=== PATIENT | male | born 1945 | race Caucasian/White ===

== ENCOUNTER 2016-03-10 07:14 | Inpatient (IN) | payer MEDICARE ==
[2016-01-29 02:15] VITALS: BMI 37.3
[2016-03-10] MEDS ORDERED: Levofloxacin 500 mg/100 ml D5W 500 MG/100 ML RTU IV ONE (07:34)
[2016-03-10] MEDS ORDERED: HEPARIN 5000 UNITS/ML VIAL ONE (07:53)
--- NOTE | 2016-03-10 08:54 | HIM.ANES ---
Anesthesia Evaluation & Plan Diagnoses: BENIGN PROSTATIC HYPERPLASIA WITH LOWER URINARY TRACT SYMP (03/10/16) OTHER RETENTION OF URINE (03/10/16) Consented Procedure: Simple Retropubic Prostatectomy - Focused Review of Systems Cardiac History: Yes: Hx Hypertension, Hx Angina, Hx Heart Attack (May 2013), Hx Cardiac Catheterization (May 2012), Hx Coronary Stent ( --05/2013), Hx Cardiac Disorders, Hx Abnormal Cholesterol/Hyperlipidemia EKG Rhythm: old ant [place] HEENT: Yes: Hx Vision Problem (Reading glasses), Other HEENT Problems No: Loose/Decaying Teeth, Removable Dental Work, Temporomandibular Joint Disease (TMJ) Respiratory: Yes: Hx Snoring Gastrointestinal: Yes: Hx Gastrointestinal Disorders No: Hx Gastroesophageal Reflux Disease, Hx Colonoscopy Neurological/Musculoskeletal: Yes: Hx Back Pain No: HX Cerebrovascular Accident, Hx Neurological Disorders Psychological: No Hx Depression, No Hx Mental/Emotional Disorders Blood/Autoimmune: No: Hx AIDS, Hx Hepatitis (type), Hx Clotting Problems Smoking Status: Current some day smoker (cigars) Hx Stress Test (date): Yes (12/25/2014 ef 65%) Hx Echocardiogram (date): Yes (08/14/13 ef 65%) - Focused Physical Exam NPO since: 1800 Mallampati: Class II Thyromental Distance: Greater than 3 Neck: Full Range of Motion Dental: Normal - no significant findings Cardiovascular/Chest: Normal Respiratory: Lungs clear Any problems with anesthesia, including nausea and vomiting?: No Any relatives with a history of Malignant Hyperthermia?: No Does patient have a history of Malignant Hyperthermia?: No Beta Sil given (if appropriate): No Does the patient have a history of Motion Sickness-: No Other: Problem List Problem Status Onset AV block, Mobitz 1 Acute Acute coronary syndrome Acute Acute non-ST segment elevation myocardial infarction Acute Chest pain Acute Coronary artery disease Acute Hypertensive emergency Acute Non-STEMI (non-ST elevated myocardial infarction) Acute Postop check Acute Allergies Allergy/AdvReac Type Severity Reaction Status Date / Time No Known Allergies Allergy Verified 03/10/16 07:47 Home Medications Medication Instructions Recorded Last Taken Type Carvedilol [Coreg] 12.5 mg PO BID 08/12/13 03/09/16 08:00 History Clopidogrel Bisulfate [Plavix] 75 mg PO DAILY 08/12/13 03/05/16 08:00 History Nitroglycerin [Nitrostat] 0.4 mg SL [id number] PRN 08/12/13 Unknown History Aspirin [Aspirin EC] 81 mg PO DAILY 12/16/14 03/05/16 08:00 History Atorvastatin Calcium 80 mg PO DAILY 12/16/14 03/09/16 08:00 History Ezetimibe [Zetia] 10 mg PO DAILY 12/16/14 03/09/16 08:00 History Fenofibrate [Lipofen] 150 mg PO DAILY 12/16/14 03/09/16 08:00 History Olmesartan [Benicar] 20 mg PO DAILY 12/16/14 03/09/16 08:00 History [place]-3S/Dha/Epa/Fish Oil [[place]-3 1 each PO DAILY 12/16/14 03/09/16 08:00 History Fish Oil 1,200 mg Sfgl] Tamsulosin HCl [Flomax] 0.4 mg PO DAILY #20 cap 01/29/16 03/09/16 08:00 Rx Height and Weight Patient's height 6 ft Patient's weight 122.47 kg BMI 37.3 Vital Signs Temperature 97.2 F L 03/10/16 07:41 Pulse Rate 75 03/10/16 07:41 Respiratory Rate 18 03/10/16 07:41 Blood Pressure 149/90 03/10/16 07:41 Pulse Oxygen Saturation 94 03/10/16 07:41 METS - Level of Activity: Climbing stairs(1 flight),walking level ground, running short distance - Anesthetic Plan Anesthesia Type: General ASA Class: 3 -: I have examined this patient and reviewed the medical record. The patient has been assessed prior to anesthesia. Risks and benefits of anesthesia and anesthetic technique options have been discussed and all questions answered. The patient accepts the risk and desires me to proceed with the planned anesthetic.
[2016-03-10] MEDS ORDERED: FENTANYL 100 MCG/2 ML VIAL IV PRN ×2 (08:55)
[2016-03-10] MEDS ORDERED: MEPERIDINE 25 MG/ML TUBEX IV PRN (08:55)
[2016-03-10] MEDS ORDERED: hydrALAZINE 20 MG/ML VIAL IV PRN (08:55)
[2016-03-10] MEDS ORDERED: ONDANSETRON HCL 4 MG/2 ML VIAL IV PRN ×2 (08:55→11:03)
[2016-03-10] MEDS ORDERED: LABETALOL 20 MG/4 ML SYRINGE IV PRN (08:55)
[2016-03-10] MEDS ORDERED: HYDROmorphone 1 MG INJECTION IV PRN ×2 (08:55)
[2016-03-10] MEDS ORDERED: ONDANSETRON HCL 4 MG ODT TAB PO PRN (08:55)
[2016-03-10] MEDS ORDERED: GLYCOPYRROLATE 1 MG VIAL IM ONE (10:00)
[2016-03-10] MEDS ORDERED: MIDAZOLAM 2 MG/2 ML VIAL IV ONE (10:00)
[2016-03-10] MEDS ORDERED: DEXAMETHASONE 4 MG/ML VIAL IV ONE (10:00)
[2016-03-10] MEDS ORDERED: EPHEDrine 50 MG/ML VIAL IM ONE (10:00)
[2016-03-10] MEDS ORDERED: ONDANSETRON HCL 4 MG/2 ML VIAL IV ONE (10:00)
[2016-03-10] MEDS ORDERED: PROPOFOL 200 MG/20 ML VIAL IV ONE (10:00)
[2016-03-10] MEDS ORDERED: VECURONIUM 10 MG VIAL IV ONE (10:00)
[2016-03-10] MEDS ORDERED: HYDROmorphone 2 MG/ML VIAL IM ONE (10:00)
[2016-03-10] MEDS ORDERED: NEOSTIGMINE 1 MG/1 ML (1:1000) INJ 10 ML MDV IM ONE (10:00)
[2016-03-10] MEDS ORDERED: ROCURONIUM 50 MG/5 ML VIAL IV ONE (10:00)
--- NOTE | 2016-03-10 10:58 | HIMOPRPT ---
SPECIMENS: DATE OF PROCEDURE: 03/10/16 PREOPERATIVE DIAGNOSIS: [BPH with urinary retention ]. POSTOPERATIVE DIAGNOSIS: BPH with urinary retention [ ]. PROCEDURE PERFORMED: Simple retropubic prostatectomy [ ]. ANESTHESIA: [general ]. SURGEON: Thomas Wang MD PROCEDURE IN DETAIL: [ ] this patient was taken to the operating room was given general anesthesia- he was placed in supine position this slightly raised pubic bone by flexing his position--his Hawk catheter was removed and then he was prepped---and draped in usual sterile fashion a transverse incision was made for about 5 inches of finger breaths above the symphysis pubis--- this is a was carried to subcutaneous tissues and the rectus sheath -------a separately retractor was placed in between the 2 recti muscles to expose the retropubic space-- upper and lower leaves of the rectus sheath were dissected off with the help of cautery to free them from underlying muscle. A self retraining retractor was placed in between the 2 recti muscles to expose the retropubic space---2 stay sutures were placed in the midline 1 at the bladder neck and one 2 cm below that using 0 chromic catgut sutures--- with the help of cautery a transverse incision was made across the anterior prostate capsule and using a Metzenbaum scissors dissection was carried out between the adenoma and the capsule and eventually with the help of finger enucleation of the prostatic adenoma was completely done---any bleeders were controlled with cautery-- then a 223 of Hawk catheter was passed through the meatus and then through the prostatic fossa into the bladder and balloon instilled with 15 cc of water--- the anterior prostatic capsule was closed by 0 chromic continuous interlocking suture from each angle and coming and tying them both in the--- midline bladder irrigation was carried out and it appeared there was complete watertight closure a flat ANDREA drain was placed in the prevesical space and brought out through a stab wound below the incision and anchored to the skin with the upper curl was silk suture and connected to mild traction---- to recti muscles were approximated together with the help of 0 chromic interrupted sutures and the fascia was closed the help 030 Ethibond sutures using interrupted sutures-- subcutaneous layer was closed the help of3 0 Vicryl sutures and skin was closed elbow mohamud--- structures was applied over the main operative site patient lost about 220 cc of blood of which 120 cc was replaced patient tolerated procedure well and was returned to the recovery room area in satisfactory condition thank you
[2016-03-10] MEDS ORDERED: NITROGLYCERINE 0.4 MG TAB SL PRN (11:01)
[2016-03-10] MEDS ORDERED: HYDROCODONE 5 MG/ACETAMIN 325 MG TAB PO PRN (11:03)
[2016-03-10] MEDS ORDERED: HYDROmorphone 50 ML IV PRN (11:03)
[2016-03-10] MEDS ORDERED: FENTANYL 100 MCG/2 ML VIAL ONE (11:33)
[2016-03-10] MEDS ORDERED: HYDROmorphone 50 ML IV ONE (11:42)
[2016-03-10] MEDS ORDERED: LR 1,000 ML IV SCH (12:00)
[2016-03-10] MEDS ORDERED: Vaccine Screening Complete SCH (14:00)
--- NOTE | 2016-03-10 15:37 | CAPUEKG ---
[place], [place] Test Date: 2016-03-10 Pat Name: JENNIFER CERNA Department: Room: Gender: Male Procurement Agent: : Requested By: Order Number: Reading MD: Surya Watkins Measurements Intervals [place] Rate: 66 P: 23 CT: 232 QRS: -40 QRSD: 188 T: -18 QT: 470 QTc: 492 Interpretive Statements Sinus rhythm with 1st degree AV block Left axis deviation Right bundle branch block Inferior infarct, age undetermined No change from prior tracing. of Abnormal ECG Electronically Signed On 03-10-16 15:37:05 EST by Surya Watkins <[email or web address]> [id number]
[2016-03-10] MEDS: LR 1,000 ML IV SCH (17:15)
[2016-03-10] MEDS: D5W/LR 1,000 ML IV SCH (20:04)
[2016-03-10] MEDS: CARVEDILOL 12.5 MG TAB PO SCH (20:04)
[2016-03-11] MEDS: LR 1,000 ML IV SCH ×3 (04:42→23:38)
[2016-03-11 07:18] LABS: AUTOMATED BASOPHIL 0.2 % (0-2); AUTOMATED EOSINOPHIL 0.3 % (0-5); AUTOMATED LYMPH 12.6 % (17-44); AUTOMATED NEUTROPHIL 70.9 % (45-76); MPV 9.1 fL (7.4-10.4)
[2016-03-11 07:45] LABS: BLOOD UREA NITROGEN 21 MG/DL (9-20); CALCIUM 8.6 MG/DL (8.4-10.2); CALCULATED OSMOLALITY 274 MOs/Kg (270-290); CHLORIDE 108 mEq/L (98-107); GLUCOSE 106 mg/dL (70-99); SODIUM LEVEL 141 mEq/L (137-146)
[2016-03-11] MEDS: Levofloxacin 500 mg/100 ml D5W 500 MG/100 ML RTU IV SCH (08:07)
[2016-03-11] MEDS: OMEGA-3-ACID ETHYL ESTERS 1000 MG CAP PO SCH (08:07)
[2016-03-11] MEDS: ATORVASTATIN 80 MG TAB PO SCH (08:07)
[2016-03-11] MEDS: EZETIMIBE 10 MG TAB PO SCH (08:07)
[2016-03-11] MEDS: OLMESARTAN 20 MG TAB PO SCH (08:07)
[2016-03-11] MEDS: FENOFIBRATE 145 MG TAB PO SCH (08:07)
[2016-03-11] MEDS: CARVEDILOL 12.5 MG TAB PO SCH ×2 (08:08→21:27)
[2016-03-11] MEDS ORDERED: FENOFIBRATE 150 MG PO SCH (09:00)
[2016-03-11] MEDS ORDERED: OMEGA PO SCH (09:00)
[2016-03-11] MEDS ORDERED: FISH OIL PO SCH (09:00)
[2016-03-11] MEDS ORDERED: EPA PO SCH (09:00)
[2016-03-11] MEDS ORDERED: DHA PO SCH (09:00)
[2016-03-11] MEDS ORDERED: [UNRECOGNIZED DRUG - OTHER] PO SCH (09:00)
[2016-03-11] MEDS: D5W/LR 1,000 ML IV SCH ×2 (15:14→15:18)
--- NOTE | 2016-03-11 15:39 | SC.ANESPOS ---
Post-Anesthesia Note LOC: Fully Awake Post-Anesthesia Assessment: Awake, Returned to Baseline, Hemodynamically Stable , Pain Control Adequate Phase I & II Recovery Complete: Yes Apparent Anesthesia Complication: No : N PACU Discharge Time: 12:45 - Vital Signs Blood Pressure: 123/64 Pulse: 61 Resp Rate: 18 O2 Sat: 92 Temp: 98.3 F - Comments Anesthesia Discharge Time Report Time 12:45
[2016-03-11] MEDS: OXYBUTYNIN 5 MG TAB PO PRN ×2 (16:29→21:27)
--- NOTE | 2016-03-11 17:21 | PCM.UROPRO ---
Chief Complaint: FEELING BETTER---HAS HAD BLADDER SPASMS---BLADDER IRRIGATED---CBI STOPPED THIS AM--ON LIQUID DIET Post Op Day #: 1 Post-op Assessment: Reports: No new complaints, Feels better, Pain is less, Tolerating liquids well Patient care reviewed: Yes Patient care reviewed and discussed with Nursing - Physical Exam Vital Signs: Temperature: 98.3 F (03/11/16 15:39) HR: 61 (03/11/16 15:39) RR: 18 (03/11/16 15:39) BP: 123/64 (03/11/16 15:39) Pulse Ox: 92 (03/11/16 15:39) General: Oriented x3 HEENT: Normal Respiratory: Normal - CTA Genitourinary: Catheter in Place Result Diagrams: 03/11/16 06:42 03/11/16 06:42 Plan: ADVANCE DIET TOLERATED---AMBULATION
[2016-03-12] MEDS: OXYBUTYNIN 5 MG TAB PO PRN (03:49)
[2016-03-12] MEDS: Levofloxacin 500 mg/100 ml D5W 500 MG/100 ML RTU IV SCH (07:45)
[2016-03-12] MEDS: LR 1,000 ML IV SCH (07:47)
[2016-03-12] MEDS: ATORVASTATIN 80 MG TAB PO SCH (07:48)
[2016-03-12] MEDS: EZETIMIBE 10 MG TAB PO SCH (07:48)
[2016-03-12] MEDS: OLMESARTAN 20 MG TAB PO SCH (07:48)
[2016-03-12] MEDS: FENOFIBRATE 145 MG TAB PO SCH (07:48)
[2016-03-12] MEDS: OMEGA-3-ACID ETHYL ESTERS 1000 MG CAP PO SCH (07:48)
[2016-03-12] MEDS: CARVEDILOL 12.5 MG TAB PO SCH (07:55)
--- NOTE | 2016-03-12 09:05 | PCM.UROPRO ---
Chief Complaint: FEELING MUCH BETTER---LWSS B;ADDER SPASM--URINE IS CLEAR--PASSING FLATUS Post Op Day #: 2 Post-op Assessment: Reports: No new complaints, Feels better, Pain is less, Tolerating liquids well, Tolerating Regular Diet, Catheter draining WNL, Urine color WNL Patient care reviewed: Yes Patient care reviewed and discussed with Nursing - Physical Exam Vital Signs: Temperature: 98.4 F (03/12/16 06:24) HR: 83 (03/12/16 06:24) RR: 18 (03/12/16 07:50) BP: 141/64 (03/12/16 06:24) Pulse Ox: 92 (03/12/16 06:24) General: Alert, Oriented x3 HEENT: Normal Respiratory: Normal - CTA Genitourinary: Catheter in Place Result Diagrams: 03/11/16 06:42 03/11/16 06:42 Plan: AMBULATION--REGULAR DIET--MAY DISCHARGE TONIGHT
[2016-03-12] MEDS: D5W/LR 1,000 ML IV SCH ×2 (10:42→15:38)
[2016-03-12 15:01] VITALS: BP 126/60; PULSE 60; TEMP 98.3
--- NOTE | 2016-03-12 16:49 | PCM.DCS92 ---
- Final/Secondary Discharge Diagnosis (1) BPH (benign prostatic hypertrophy) with urinary obstruction Resolved N40.1 - BENIGN PROSTATIC HYPERPLASIA WITH LOWER URINARY TRACT SYMP; N13.8 - OTHER OBSTRUCTIVE AND REFLUX UROPATHY Present on Admission: Yes Plan/Goal/Comment: COUSR IN HOSPITAL-----PT UNDERWENT OPENRP PROSTATECTOMY---CBI WAS STOPPED NEXT DAY---SP DRAIN WAS REMOVES 36 HOURS LATER---HE WAS EATING REGULAR DIET AND SANTIAGO CATHETER WAS DRAINING CLEAR URINE---HE WAS DISCHARGED HOME W-ITH LEG BAG FINAL DX--BPH WITH AUR CONDITION --STABLE-- MEDS--CIPRP/LORTAB FOLLOW UP --TUESDAY Discharge Disposition: Home Physician Follow up/Referrals: Thomas Wang MD [Staff Physician] - 03/16/16 2:45 pm Home Medications/ New Prescriptions: No Action Clopidogrel Bisulfate [Plavix] 75 mg PO DAILY Carvedilol [Coreg] 12.5 mg PO BID Nitroglycerin [Nitrostat] 0.4 mg SL [id number] PRN PRN Reason: Chest Pain Or Discomfort Olmesartan [Benicar] 20 mg PO DAILY Ezetimibe [Zetia] 10 mg PO DAILY Aspirin [Aspirin EC] 81 mg PO DAILY [place]-3S/Dha/Epa/Fish Oil [[place]-3 Fish Oil 1,200 mg Sfgl] 1 each PO DAILY Tamsulosin HCl [Flomax] 0.4 mg PO DAILY #20 cap Fenofibrate 160 mg PO DAILY Hydrocodone/Acetaminophen [Lortab 7.5-325 mg Tablet] 1 each PO Q6H PRN PRN Reason: Pain Ciprofloxacin HCl [Cipro] 500 mg PO BID Diet at Discharge: As Tolerated Activity: No Heavy Lifting - DC Summary Notes Hospital Course Note:: Discharge summary on patient named JENNIFER CERNA admitted to [facility] on 03/10/16 by Thomas Wang MD. Date of discharge is []. Wound Care Surgical Site: No
== END 2016-03-12 16:40 | disposition home or self-care (01) | DRG 707 ==
LOC: SDC 07:14 → MPS3 12:25
PROVIDERS: ADMIT Urology; ATTEND Urology
PROC: 0VT00ZZ Resection of Prostate, Open Approach (ICD-10-PCS; principal; 2016-03-10 09:00)
DX: N40.1 Benign prostatic hyperplasia with lower urinary tract symptoms (principal); N13.8 Other obstructive and reflux uropathy; I10 Essential (primary) hypertension; I25.119 Atherosclerotic heart disease of native coronary artery with unspecified angina pectoris; E78.5 Hyperlipidemia, unspecified; Z95.5 Presence of coronary angioplasty implant and graft; I25.2 Old myocardial infarction; Z72.0 Tobacco use
CPT/HCPCS: 80048; 85025; 93005; J1100; J1170; J1644; J1956; J2250; J2405; J2710; J3010; J3490